=== PATIENT | female | born 1945 | race Caucasian/White ===

== ENCOUNTER 2018-01-18 11:37 | Emergency (ER) | payer OTHER ==
[2018-01-18] MEDS ORDERED: KETOROLAC TROMETHAMINE 30MG/ML ONE (12:30)
[2018-01-18] MEDS ORDERED: TETANUS/DIPHTHERIA TOXOID [ADULT] 0.5 ML VIAL IM ONE (12:31)
== END 2018-01-18 13:30 | disposition home or self-care (01) ==
LOC: EDH 11:37
DX: S42.214A Unspecified nondisplaced fracture of surgical neck of right humerus, initial encounter for closed fracture (principal); S80.811A Abrasion, right lower leg, initial encounter; Z88.2 Allergy status to sulfonamides; Z88.8 Allergy status to other drugs, medicaments and biological substances; V19.9XXA Pedal cyclist (driver) (passenger) injured in unspecified traffic accident, initial encounter; Y93.89 Activity, other specified; Y92.89 Other specified places as the place of occurrence of the external cause; Y99.8 Other external cause status
CPT/HCPCS: 73060; 90471; 90714; 99284; J1885